=== PATIENT | male | born 1985 | race Hispanic/Latino ===

== ENCOUNTER 2019-12-27 12:26 | Emergency (ER) | payer BC ==
[2019-12-27] MEDS ORDERED: NA CHLORIDE 0.9% 1,000 ML ONE (13:24)
[2019-12-27 13:28] LABS: Absolute Lymphocytes (CBC) 2.6 K/uL (0.7-4.9); Basophils % 1.4 % (0-1.3); Hematocrit 49.1 % (39.6-49.0); Lymphocytes % 32.7 % (15.3-44.8); MPV 7.8 fL (7.6-11.3); RBC Red Blood Cell Count 6.13 M/uL (4.33-5.43)
[2019-12-27 13:46] LABS: ALT/SGPT 46 U/L (12-78); AST/SGOT 27 U/L (15-37); Albumin 4.2 g/dL (3.4-5.0); Alkaline Phosphatase 55 U/L (45-117); BUN Blood Urea Nitrogen 14 mg/dL (7-18); Bicarbonate 28 mmol/L (21-32); Bilirubin Direct < 0.1 mg/dL (0-0.2); Bilirubin Total 0.3 mg/dL (0.2-1.0); Glucose Level 102 mg/dL (74-106); Lipase 106 U/L (73-393); Potassium 4.1 mmol/L (3.5-5.1); Protein, Total 7.8 g/dL (6.4-8.2); Sodium Level 139 mmol/L (136-145)
--- NOTE | 2019-12-27 14:00 | RAD REPORT ---
EXAM DESCRIPTION: CTAbdomen Pelvis W Contrast - 12/27/2019 1:47 pm CLINICAL HISTORY: Abdominal pain. ABD PAIN COMPARISON: No comparisons TECHNIQUE: Biphasic CT imaging of the abdomen and pelvis was performed with 100 ml non-ionic IV cont rast. All CT scans are performed using dose optimization technique as appropriate and may include automated exposure control or mA/KV adjustment according to patient size. FINDINGS: The lung bases are clear. The liver, spleen, pancreas, adrenal glands and kidneys are within normal limits. No bowel obstruction, free air, free fluid or abscess. The appendix is normal. No evidence of signi ficant lymphadenopathy. No significant hernia is seen. No suspicious bony findings. IMPRESSION: No acute intra-abdominal or pelvic finding.
--- NOTE | 2019-12-27 14:17 | ER ---
Nurse's Notes [facility] Name: Everardo Law Age: 34 yrs Sex: Male : 1985 Arrival Date: 12/27/2019 Time: 12:31 Bed 13 Private MD: Diagnosis: Generalized abdominal pain Presentation: 12/26 12:44 Chief complaint: Patient states: abd hernia that has been ongoing for about 5 days on sv the left side but today he started having right sided pain and a "knot" on his umbilical area with a shooting pain in the right groin pain. Coronavirus screen: Client denies travel out of the [place] in the last 14 days. At this time, the client does not indicate any symptoms associated with coronavirus-19. Ebola Screen: No symptoms or risks identified at this time. Risk Assessment: Do you want to hurt yourself or someone else? Patient reports no desire to harm self or others. Onset of symptoms was December 2019. 12:44 Method Of Arrival: Ambulatory sv 12:44 Acuity: AGA 3 sv 12:46 Initial Sepsis Screen: Does the patient meet any 2 criteria? No. Patient's initial sv sepsis screen is negative. Does the patient have a suspected source of infection? No. Patient's initial sepsis screen is negative. Historical: - Allergies: 12:46 No Known Allergies; sv - PMHx: 12:46 None; sv - PSHx: 12:46 None; sv - Immunization history:: Adult Immunizations up to date. - Social history:: Smoking status: Patient denies any tobacco usage or history of. Screenin:00 Abuse screen: Denies threats or abuse. Nutritional screening: No deficits noted. aa5 Tuberculosis screening: No symptoms or risk factors identified. Fall Risk None identified. Assessment: 13:00 General: Appears comfortable, Behavior is calm, cooperative. Pain: Complains of pain in aa5 umbilical area Pain does not radiate. Pain currently is 4 out of 10 on a pain scale. Quality of pain is described as pressure, Is continuous. Neuro: Level of Consciousness is awake, alert, obeys commands, Oriented to person, place, time, situation. Cardiovascular: Heart tones S1 S2 present Rhythm is regular. Respiratory: Airway is patent Respiratory effort is even, unlabored, Respiratory pattern is regular, symmetrical. GI: Abdomen is round non-distended, Bowel sounds present X 4 quads. Abdomen is tender to palpation in umbilical area Reports nausea, Patient currently denies vomiting. : No signs and/or symptoms were reported regarding the genitourinary system. EENT: No signs and/or symptoms were reported regarding the EENT system. Derm: Skin is pink, warm \\T\\ dry. Musculoskeletal: Range of motion: intact in all extremities. 13:25 Reassessment: Patient is alert, oriented x 3, equal unlabored respirations, skin aa5 warm/dry/pink. Awaiting CT scan, pt notified of wait time. Pt states "I don't have any pain right now just pressure" . 14:45 Reassessment: Patient is alert, oriented x 3, equal unlabored respirations, skin aa5 warm/dry/pink. Vital Signs: 12:46 BP 138 / 88; Pulse 82; Resp 18; Temp 98.7(TE); Pulse Ox 100% on R/A; Weight 113.4 kg; sv Height 5 ft. 7 in. (170.18 cm); Pain 4/10; 14:41 BP 129 / 95; Pulse 67; Resp 18; Pulse Ox 98% on R/A; dh4 12:46 Body Mass Index 39.16 (113.40 kg, 170.18 cm) sv ED Course: 12:31 Patient arrived in ED. mr 12:44 Arm band placed on. sv 12:45 Triage completed. sv 12:52 Abigail Cardoza FNP-C is [facility]. kb 12:52 Charles Alcantar MD is Attending Physician. kb 13:00 Patient has correct armband on for positive identification. Bed in low position. Call aa5 light in reach. Side rails up X 1. 13:19 Inserted saline lock: 20 gauge in right antecubital area, using aseptic technique. dh4 Blood collected. 13:36 Brittany Casper, MAYITO is Primary Nurse. aa5 13:47 CT Abd/Pelvis - IV Contrast Only In Process Unspecified. EDMS 14:45 No provider procedures requiring assistance completed. IV discontinued, intact, aa5 bleeding controlled, No redness/swelling at site. Pressure dressing applied. Administered Medications: 13:25 Drug: NS 0.9% 1000 ml Route: IV; Rate: 1000 ml; Site: right antecubital; aa5 14:45 Follow up: IV Intake: 200ml ; IV fluids infusing slowly, offered to finished bolus aa5 before d/c, pt refused. 14:30 Drug: Pepcid 20 mg Route: IVP; Site: right antecubital; aa5 14:35 Follow up: Response: No adverse reaction aa5 Intake: 14:45 IV: 200ml; Total: 200ml. aa5 Outcome: 14:16 Discharge ordered by MD. guzman 14:45 Discharged to home ambulatory. aa5 14:45 Condition: stable 14:45 Discharge instructions given to patient, Instructed on discharge instructions, follow up and referral plans. medication usage, Demonstrated understanding of instructions, follow-up care, medications, Prescriptions given X 2. 14:47 Patient left the ED. aa5 Signatures: Dispatcher [employer] EDMS Abigail Cardoza, GAS SUBSTATION OPERATOR-C GAS SUBSTATION OPERATOR-Jami Dang RN RN Maria Isabel Hoffman CasperBrittany RN RN aa5 Sedrick Stephenson [facility] Corrections: (The following items were deleted from the chart) 12:47 12:44 Chief complaint: Patient states: abd hernia that has been ongoing for about 5 sv days on the left side but today he started having right sided pain and a "knot" on his umbilical area with a shooting pain in the right groin pain. sv 12:48 12:46 Pulse 82bpm; Resp 18bpm; Pulse Ox 100%; Temp 98.7F; 113.4 kg; Height 5 ft. 7 in.; sv BMI: 39.1; sv 14:36 13:00 GI: Abdomen is round non-distended, Bowel sounds present X 4 quads. Abdomen is aa5 tender to palpation in umbilical area aa5 14:53 14:52 Patient left the ED. aa5 aa5
--- NOTE | 2019-12-27 14:17 | EDPHYS ---
Physician Documentation [facility] Name: Everardo Law Age: 34 yrs Sex: Male : 1985 Arrival Date: 12/27/2019 Time: 12:31 Bed 13 Private MD: ED Physician Charles Alcantar HPI: 12/26 14:02 This 34 yrs old Male presents to ER via Ambulatory with complaints of Hernia. kb 14:02 The patient presents with abdominal pain that is diffuse. Onset: The symptoms/episode kb began/occurred last night. The symptoms do not radiate. Associated signs and symptoms: Pertinent positives: nausea. The symptoms are described as constant. Modifying factors: The symptoms are alleviated by nothing, the symptoms are aggravated by nothing. Severity of pain: At its worst the pain was moderate in the emergency department the pain is unchanged. The patient has not experienced similar symptoms in the past. The patient has not recently seen a physician. Pt reports he woke up with pain to abd. States it feels like a tightness that is getting tighter and tighter. Historical: - Allergies: 12:46 No Known Allergies; sv - PMHx: 12:46 None; sv - PSHx: 12:46 None; sv - Immunization history:: Adult Immunizations up to date. - Social history:: Smoking status: Patient denies any tobacco usage or history of. ROS: 14:00 Constitutional: Negative for fever, chills, and weight loss, Cardiovascular: Negative kb for chest pain, palpitations, and edema, Respiratory: Negative for shortness of breath, cough, wheezing, and pleuritic chest pain, Back: Negative for injury and pain, MS/Extremity: Negative for injury and deformity, Skin: Negative for injury, rash, and discoloration, Neuro: Negative for headache, weakness, numbness, tingling, and seizure. 14:00 Abdomen/GI: Positive for abdominal pain, nausea. Exam: 14:00 Constitutional: This is a well developed, well nourished patient who is awake, alert, kb and in no acute distress. Head/Face: Normocephalic, atraumatic. Chest/axilla: Normal chest wall appearance and motion. Nontender with no deformity. No lesions are appreciated. Cardiovascular: Regular rate and rhythm with a normal S1 and S2. No gallops, murmurs, or rubs. Normal PMI, no JVD. No pulse deficits. Respiratory: Lungs have equal breath sounds bilaterally, clear to auscultation and percussion. No rales, rhonchi or wheezes noted. No increased work of breathing, no retractions or nasal flaring. Skin: Warm, dry with normal turgor. Normal color with no rashes, no lesions, and no evidence of cellulitis. MS/ Extremity: Pulses equal, no cyanosis. Neurovascular intact. Full, normal range of motion. Neuro: Awake and alert, GCS 15, oriented to person, place, time, and situation. Cranial nerves II-XII grossly intact. Motor strength 5/5 in all extremities. Sensory grossly intact. Cerebellar exam normal. Normal gait. 14:00 Abdomen/GI: Inspection: abdomen appears normal, Bowel sounds: normal, in all quadrants, Palpation: soft, in all quadrants, mild abdominal tenderness, in the umbilical area and suprapubic area. Vital Signs: 12:46 BP 138 / 88; Pulse 82; Resp 18; Temp 98.7(TE); Pulse Ox 100% on R/A; Weight 113.4 kg; sv Height 5 ft. 7 in. (170.18 cm); Pain 4/10; 14:41 BP 129 / 95; Pulse 67; Resp 18; Pulse Ox 98% on R/A; dh4 12:46 Body Mass Index 39.16 (113.40 kg, 170.18 cm) sv MDM: 12:53 Patient medically screened. kb 13:58 Data reviewed: vital signs, nurses notes. Data interpreted: Pulse oximetry: on room air kb is 100 %. Interpretation: normal. 14:16 Counseling: I had a detailed discussion with the patient and/or guardian regarding: the kb historical points, exam findings, and any diagnostic results supporting the discharge/admit diagnosis, lab results, radiology results, the need for outpatient follow up, a family practitioner, to return to the emergency department if symptoms worsen or persist or if there are any questions or concerns that arise at home. 12/26 13:05 Order name: Basic Metabolic Panel; Complete Time: 13:53 kb 12/26 13:05 Order name: CBC with Diff; Complete Time: 13:33 kb 12/26 13:05 Order name: Hepatic Function; Complete Time: 13:53 kb 12/26 13:05 Order name: Lipase; Complete Time: 13:53 kb 12/26 13:05 Order name: CT Abd/Pelvis - IV Contrast Only; Complete Time: 14:04 kb 12/26 13:05 Order name: IV Saline Lock; Complete Time: 13:36 kb 12/26 13:05 Order name: Labs collected and sent; Complete Time: 13:36 kb Administered Medications: 13:25 Drug: NS 0.9% 1000 ml Route: IV; Rate: 1000 ml; Site: right antecubital; aa5 14:45 Follow up: IV Intake: 200ml ; IV fluids infusing slowly, offered to finished bolus aa5 before d/c, pt refused. 14:30 Drug: Pepcid 20 mg Route: IVP; Site: right antecubital; aa5 14:35 Follow up: Response: No adverse reaction aa5 Disposition: 16:43 Co-signature as Attending Physician, Charles Alcantar MD I agree with the assessment and kdr plan of care. Disposition: 12/27/19 14:16 Discharged to Home. Impression: Generalized abdominal pain. - Condition is Stable. - Discharge Instructions: Abdominal Pain, Adult, [id number]. - Prescriptions for Bentyl 20 mg Oral Tablet - take 1 tablet by ORAL route every 6 hours As needed; 20 tablet. Zofran 4 mg Oral Tablet - take 1 tablet by ORAL route every 6 hours As needed; 20 tablet. - Medication Reconciliation Form, Thank You Letter, Antibiotic Education, Prescription Opioid Use, Work release form form. - Follow up: Emergency Department; When: As needed; Reason: Worsening of condition. Follow up: Private Physician; When: 2 - 3 days; Reason: Recheck today's complaints, Continuance of care, Re-evaluation by your physician. Signatures: Dispatcher [employer] EDNV Abigail Cardoza, MERLIN CHRISTIANSEN-Jami Dang RN RN sv Rittger, Kevin, MD MD [facility] Brittany Casper RN RN aa5 Corrections: (The following items were deleted from the chart) 14:52 14:16 12/27/2019 14:16 Discharged to Home. Impression: Generalized abdominal pain. aa5 Condition is Stable. Forms are Medication Reconciliation Form, Thank You Letter, Antibiotic Education, Prescription Opioid Use. Follow up: Emergency Department; When: As needed; Reason: Worsening of condition. Follow up: Private Physician; When: 2 - 3 days; Reason: Recheck today's complaints, Continuance of care, Re-evaluation by your physician. kb
[2019-12-27] MEDS ORDERED: FAMOTIDINE 20 MG/2 ML VIAL IV ONE (14:52)
[2019-12-27 19:20] VITALS: TEMP 98.7
[2019-12-27 19:21] VITALS: BP 129/95; O2SAT 98
== END 2019-12-27 14:52 | disposition home or self-care (01) ==
LOC: ER 12:26
DX: R10.84 Generalized abdominal pain (principal)
CPT/HCPCS: 85025; 80048; 36415; 82565; 80076; 83690; 74177; 96374; 99284; Q9967; J7030

== ENCOUNTER 2024-04-07 17:18 | Emergency (ER) | payer BC ==
--- OUTSIDE RECORDS SUMMARY | 2024-04-07 17:23 | XMS REPORT | Continuity of Care Document ---
Author Name Unknown Address [address] [facility] [address] [place] [address] [facility] Address [address] [facility] [address] [facility] [address] [place] [address] Care Team Providers [facility] [employer] Professor Name Role Phone ZOFIA RIOS Primo Primary Care Physician LALY SARGENT Attending Clinician Tia Car MA Attending Clinician Francisco case Payers Payer Name Policy Type Policy Number Effective Date Expirati on Date Source [employer]BST[employer] PPO [id number] 2019 00:00:00 Problems Condition Name Condition Details Condition Category Status Onset Date Resolution Date Last Treatment Date Treating Clinician Comments Source Influenza- like illness Influenza- like Illness Problem Active 2023-04 00:00: 00 [facility] Fever Fever Problem Active 2023-04 00:00: 00 [facility] Nausea and vomiting Nausea and Vomiting Problem Active 2023-04 00:00: 00 [facility] No known active problems No known active problems Disease [facility] Social History Social Habit Start Date Stop Date Quantity Comments Source Exposure to SARS-CoV-2 (event) Not sure [facility] Alcohol intake 2021-04-06 00:00:00 2021-04-06 00:00:00 Ex-drinker (finding) [facility] Tobacco use and exposure 2020-12-15 00:00:00 2020-12-15 00:00:00 Smokeless tobacco non-user [facility] Sex Assigned At 1985 00:00:00 1985 00:00:00 [facility] Smoking Status Start Date Stop Date Source Never Smoker [facility] Ex-smoker 2020-12-15 00:00:00 2020-12-15 00:00:[address] [facility] Medications Ordered Medication Name Filled Medication Name Start Date Stop Date Current Medication? Ordering Clinician Indication Dosage Frequency Signature (SIG) Comments Components Source Loratadine- Pseudoephed rine (CLARITIN-D 12 HOUR PO) 2020-04 14:15: 01 Yes Take by mouth. [facility] TESTOSTERON E BU 2020-04 13:56: [address] mouth between cheek and gum. [facility] anastrozole (Arimidex) 1 MG chemo tablet 2020-04 13:56: 38 Yes 1mg QD Take 1 mg by mouth 1 (one) time each day. Swallow whole with a drink of water. [facility] diclofenac (Voltaren) 50 MG EC tablet 2020-04 00:00: 00 03-18 05:59 :00 No [id number] 50mg [id number] 3D Take 1 tablet (50 mg total) by mouth 3 (three) times a day if needed (pain). Do not crush, chew, or split. [facility] promethazin e (Phenergan) 12.5 MG tablet 2020-04 00:00: 00 03-25 05:59 :00 No [id number] 12.5mg Q6H Take 1 tablet (12.5 mg total) by mouth every 6 (six) hours if needed for nausea or vomiting for up to 7 days. [facility] amoxicillin -clavulanat e (Augmentin) 500-125 MG tablet 2020-04 00:00: 00 03-25 05:59 :00 No [id number] 500mg Q12H Take 1 tablet (500 mg total) by mouth every 12 (twelve) hours for 7 days. [facility] HYDROcodone -acetaminop hen ([place]) 7.5-325 MG tablet 2020-04 00:00: 00 03-23 05:59 :00 No [id number] 1{tbl} Q6H Take 1 tablet by mouth every 6 (six) hours if needed for severe pain for up to 5 days. [facility] cetirizine (ZyrTEC) 10 MG tablet 12-22 00:00: 00 Yes [id number] 10mg Take 1 tablet (10 mg total) by mouth 1 (one) time each day if needed for allergies. [facility] anastrozole (Arimidex) 1 MG chemo tablet 12-15 15:37: 17 Yes 1mg QD Take 1 mg by mouth 1 (one) time each day Swallow whole with a drink of water. [facility] TESTOSTERON E BU 12-15 15:37: [address] mouth between cheek and gum. [facility] anastrozole (Arimidex) 1 MG chemo tablet 12-15 10:37: 17 Yes 1mg QD Take 1 mg by mouth 1 (one) time each day Swallow whole with a drink of water. [facility] TESTOSTERON E 12-15 10:37: [address] mouth between cheek and gum. [facility] predniSONE (Deltasone) 10 MG tablet 12-15 00:00: 00 Yes 75 Take 3 tablets by mouth daily for 3 days then Take 2 tablets by mouth daily for 3 days then Take 1 tablets by mouth daily for 4 days [facility] cetirizine (ZyrTEC) 10 MG tablet 12-15 00:00: 00 12-22 00:00 :00 No [id number] 10mg Take 1 tablet (10 mg total) by mouth 1 (one) time each day if needed for allergies. [facility] bupropion HCl XL 300 mg 24 hr tablet, extended release TAKE 1 TABLET BY MOUTH EVERY DAY bupropion HCl XL 300 mg 24 hr tablet, extended release TAKE 1 TABLET BY MOUTH EVERY DAY No bupropion HCl XL 300 mg 24 hr tablet, extended release TAKE 1 TABLET BY MOUTH EVERY DAY [facility] cholecalcif beatriz (vitamin D3) 1,250 mcg (50,000 unit) capsule TAKE 1 CAPSULE BY MOUTH EVERY WEEK FOR 12 WEEKS cholecalcif beatriz (vitamin D3) 1,250 mcg (50,000 unit) capsule TAKE 1 CAPSULE BY MOUTH EVERY WEEK FOR 12 WEEKS No cholecalci ferol (vitamin D3) 1,250 mcg (50,000 unit) capsule TAKE 1 CAPSULE BY MOUTH EVERY WEEK FOR 12 WEEKS [facility] dextroamphe tamine-amph etamine ER 20 mg 24hr capsule,ext end release TAKE 1 CAPSULE BY MOUTH EVERY MORNING dextroamphe tamine-amph etamine ER 20 mg 24hr capsule,ext end release TAKE 1 CAPSULE BY MOUTH EVERY MORNING No dextroamph etamine-am phetamine ER 20 mg 24hr capsule,ex tend release TAKE 1 CAPSULE BY MOUTH EVERY MORNING [facility] ondansetron 4 mg disintegrat ing tablet Place 1 tablet every 4 hours by translingua l route as needed for 3 days. ondansetron 4 mg disintegrat ing tablet Place 1 tablet every 4 hours by translingua l route as needed for 3 days. No 1 Q4H ondansetro n 4 mg disintegra ting tablet Place 1 tablet every 4 hours by translingu al route as needed for 3 days. [facility] promethazin e-DM 6.25 mg-15 mg/5 mL oral syrup Take 5 mL every 4 hours by oral route for 5 days. promethazin e-DM 6.25 mg-15 mg/5 mL oral syrup Take 5 mL every 4 hours by oral route for 5 days. No 5mL Q4H promethazi ne-DM 6.25 mg-15 mg/5 mL oral syrup Take 5 mL every 4 hours by oral route for 5 days. [facility] propranolol 40 mg tablet TAKE 1 TABLET BY MOUTH EVERY MORNING propranolol 40 mg tablet TAKE 1 TABLET BY MOUTH EVERY MORNING No propranolo l 40 mg tablet TAKE 1 TABLET BY MOUTH EVERY MORNING [facility] sildenafil (pulmonary hypertensio n) 20 mg tablet TAKE 1 TABLET BY MOUTH 1 HOUR BEFORE SEXUALY ACTIVITY sildenafil (pulmonary hypertensio n) 20 mg tablet TAKE 1 TABLET BY MOUTH 1 HOUR BEFORE SEXUALY ACTIVITY No sildenafil (pulmonary hypertensi on) 20 mg tablet TAKE 1 TABLET BY MOUTH 1 HOUR BEFORE SEXUALY ACTIVITY [facility] testosteron e cypionate 200 mg/mL intramuscul ar oil INJEC 200 MG INTRAMUSCUL DIONICIO EVERY WEEK testosteron e cypionate 200 mg/mL intramuscul ar oil INJEC 200 MG INTRAMUSCUL DIONICIO EVERY WEEK No testostero ne cypionate 200 mg/mL intramuscu lar oil INJEC 200 MG INTRAMUSCU JESUS EVERY WEEK [facility] benzonatate 200 mg capsule Take 1 capsule 3 times a day by oral route for 10 days. benzonatate 200 mg capsule Take 1 capsule 3 times a day by oral route for 10 days. No 1capsul e(s) TID benzonatat e 200 mg capsule Take 1 capsule 3 times a day by oral route for 10 days. [facility] Vital Signs Vital Name Observation Time Observation Value Comments [facility] Body height 2021-01-26 13:27:00 170.2 cm [facility] Body weight 2021-01-26 13:27:00 122.471 kg [facility] BMI 2021-01-26 13:27:00 42.29 kg/m2 [facility] BP Systolic 2024-04-01 00:00:00 115 mm[Hg] [facility] Height 2024-04-01 00:00:00 67 [facility] BMI (Body Mass Index) 2024-04-01 00:00:00 50 kg/m2 [facility] Body Weight 2024-04-01 00:00:00 5104 [oz_av] [facility] BP Diastolic 2024-04-01 00:00:00 69 mm[Hg] [facility] Body height 2021-04-06 20:13:00 170.2 cm [facility] Body weight 2021-04-06 20:13:00 127.007 kg [facility] BMI 2021-04-06 20:13:00 43.85 kg/m2 [facility] Body height 2021-03-23 19:55:00 170.2 cm [facility] Body weight 2021-03-23 19:55:00 129.275 kg [facility] BMI 2021-03-23 19:55:00 44.64 kg/m2 [facility] Body height 2021-01-26 13:27:00 170.2 cm [facility] Body weight 2021-01-26 13:27:00 122.471 kg [facility] BMI 2021-01-26 13:27:00 42.29 kg/m2 [facility] Body height 2020-12-15 15:35:00 170.2 cm [facility] Body weight 2020-12-15 15:35:00 124.739 kg [facility] BMI 2020-12-15 15:35:00 43.07 kg/m2 [facility] Procedures Procedure Date / Time Performed Performing Clinicia n Source SURGICAL BIOPSY 2021-03-18 06:00:00 Laly Sargent [facility] Encounters Start Date/Time End Date/Time Encounter Type Admission Type Attending [facility] Care Department Encounter ID Source 2021-04-06 14:56:34 Outpatient LALY SARGENT [facility] [id number] [facility] 2021-02-12 07:42:11 Outpatient [facility] [id number] [facility] 2021-01-26 09:09:25 Outpatient [facility] [id number] [facility] 2021-01-26 09:08:29 Outpatient [facility] [id number] [facility] 2020-12-15 11:32:54 Outpatient [facility] [id number] [facility] 2024-04-01 00:00:00 2024-04-01 00:00:00 Susi Barfield, BAD CLOTH CHECKER: [address], [address], [place] [address] , Ph. [facility] [id number] 1223 [facility] 2021-04-06 13:45:00 2021-04-06 14:56:46 Office Visit Laly Sargent [facility] [address] [id number] 3 [id number] [facility] 2021-03-23 14:00:00 2021-03-23 14:33:55 Office Visit Laly Sargent [facility] [address] [id number] [facility] 2021-03-18 00:00:00 2021-03-18 00:00:00 Orders Only Laly Sargent [facility] [address] [id number] [facility] 2021-01-26 08:17:27 2021-01-26 09:05:32 Office Visit Laly Sargent [facility] [address] [id number] [facility] 2020-12-22 00:00:00 2020-12-22 00:00:00 Orders Only Ken, Tia Rogers, Tia [facility] [address] [id number] [id number] [facility] 2020-12-15 10:24:16 2020-12-15 11:32:53 Office Visit Laly Sargent [facility] [address] [id number] [id number] [facility] Results Test Description Test Time Test Comments Results Result Co mments Source [facility] and SARS-CoV+SARS-CoV-2 (COVID- 19) Ag panel - Upper respiratory specimen byRapid [id number] 16:17:15 * Test Item Value Reference Range Interpretation Comme [facility] RAPID SARS COV (test code = RAPID SARS COV) negative RAPID FLU A (test code = RAP ID FLU A) negative RAPID FLU B (test code = RAP ID FLU B) negative [facility] [id number] 18:06:00* Test Item Value Reference Range Interpretation Comme [facility] Pathology Report (test code = 4133416) PATIENT: ? Anna Gutierrez ? CASE NUMBER: ? [id number] OF : ? 1985 AGE: ?35 yrs SEX: M ? ? ? DATE COLLECTED: ?03/18/2021MRN: ? [id number] ?DATE RECEIVED: ? 03/19/2021ORDERING PHYSICIAN: Laly Sargent M.D. ? DATE REPORTED: ? 03/22/2021 COPY TO: ? [facility] ?SURGICAL PATHOLOGY REPORT DIAGNOSIS:Sinus Contents (Endoscopic sinus surgery): ? ? - Mild chronic sinusitis. ? ELECTRONICALLY SIGNED BY: ?Black Jorge M.D. ?03/22/2021 12:05 PMSPECIMEN SUBMITTED:Sinus Contents (Endoscopic sinus surgery)CLINICAL HISTORY:Inferior turbinate hypertrophy, chronic rhinosinusitis, nasal valve collapseGROSS DESCRIPTION:Received in formalin, labeled with the patient-s name, medical recordnumber, and -sinus contents -, is a 2.5 x 2.3 x 0.3 cm aggregate of pink todark red soft tissue, bone, and blood clot. Entirely submitted in 1A for decal.MICROSCOPIC DESCRIPTION:Histologic sections show sinonasal mucosa, submucosa, and fragments ofbone with mild chronic inflammation including lymphocytes and plasmacells. CPT CODES: ?09523, 10988CHS CODES: ?J34.3 I have personally reviewed the resident's preliminary interpretation and all ? ? ? specimen preparation and have personally issued this report. ? [facility] ? [address], [place] [address] ?Email: [email or web address] Pathologist (test code = 5919512) This case was electronically signed by Black Jorge M.D. Clinical History (test code = 0077851) Inferior turbinate hypertrophy, chronic rhinosinusitis, nasal valve collapse Comments (test code = 6548580) Frozen Interpretation (test code = 3170991) Specimen ID (test code = 1765843) BodySite (test code = 2442230) Sinus Contents SubSite (test code = 2424068) Special Procedure (test code = 8642197) Endoscopic sinus surgery Pieces (test code = 1693936) Descriptive (test code = 2525738) Size (test code = 4070713) Block (test code = 5525141) Slide (test code = 6335750) Saved (test code = 1751344) Gross Description (test code = 3065427) Received in formalin, labeled with the patient s name, medical record number, and sinus contents , is a 2.5 x 2.3 x 0.3 cm aggregate of pink to dark red soft tissue, bone, and blood clot. Entirely submitted in 1A for decal. Initials (test code = 6792410) RZ Microscopic Description (test code = 5105670) Histologic sections show sinonasal mucosa, submucosa, and fragments of bone with mild chronic inflammation including lymphocytes and plasma cells. Diagnosis Description (test code = 8327650) - Mild chronic sinusitis. Special Requests (test code = 4428942) Stain (test code = 4575074) H&E CPT Code (test code = 1892074) 90536, 74391 ICD Code (test code = 2005629) J34.3 Specimen Adequacy (test code = 5893077) Hormonal Evaluation (test code = 1740050) [employer] Diagnosis (test code = 5909208) Recommendation (test code = 7870962) PAP Comments (test code = 6471817) General Categorization (test code = 1940203) Preliminary Diagnosis (test code = 5119336) [facility]
[2024-04-07] MEDS ORDERED: NA CHLORIDE 0.9% 1,000 ML ONE (17:46)
[2024-04-07 18:41] LABS: Absolute Basophils 0.1 K/uL (0-0.5); Absolute Eosinophils 0.4 K/uL (0-0.5); Absolute Lymphocytes (CBC) 2.3 K/uL (0.7-4.9); Absolute Monocytes 1.3 K/uL (0.1-1.3); Absolute Neutrophil 7.9 K/uL (1.8-8.0); Basophils % 1.2 % (0-1.3); Eosinophils % 3.1 % (0-4.4); Hematocrit 53.9 % (39.6-49.0); Hemoglobin 17.6 g/dL (13.6-17.9); Lymphocytes % 19.2 % (15.3-44.8); MCH 26.7 pg (27.0-35.0); MCHC 32.7 g/dL (32.0-36.0); MCV 81.5 fL (80-100); MPV 7.5 fL (7.6-11.3); Monocytes % 10.6 % (3.3-12.3); Neutrophils % 65.9 % (41.7-73.7); Nucleated Red Blood Cells % 0.1 % (0-0); Platelets 364 thou/uL (152-406); RBC Red Blood Cell Count 6.62 M/uL (4.33-5.43); Red Cell Distribution Width 14.3 % (12.1-15.2)
[2024-04-07 18:50] LABS: PT Prothrombin Time 11.7 SECONDS (9.4-12.5); PTT, Activated Partial Thromb 32.3 SECONDS (24.3-36.9); Protime INR 1.05
--- NOTE | 2024-04-07 18:56 | RAD REPORT ---
EXAM: Chest Single View HISTORY: DYSPNEA COMPARISON: None. FINDINGS: LUNGS/PLEURA: The lungs are clear. No pleural effusions or pneumothorax. No pulmonary edema. MEDIASTINUM: The mediastinal silhouette is within normal limits. CARDIAC: The cardiac silhouette is within normal limits. UPPER ABDOMEN: No significant abnormality. BONES: No acute abnormality. LINES/TUBES/OTHER: N/A IMPRESSION: No evidence of acute cardiopulmonary disease.
[2024-04-07 19:03] LABS: SARS-CoV-2 Antigen CONTROL BLUE LINE VIS/BG OK; SARS-CoV-2 Antigen Rapid Res Negative (Negative)
[2024-04-07] MEDS ORDERED: ALBUTEROL 2.5 MG/3 ML NEB SOL ONE (19:45)
[2024-04-07] MEDS ORDERED: METHYLPREDNISOLONE 125 MG INJ ONE (19:45)
[2024-04-07] MEDS ORDERED: IPRATROPIUM BROM 0.5MG/2.5ML ONE (19:45)
[2024-04-07 22:02] LABS: Potassium 4.2 mEq/L (3.5-5.1)
[2024-04-07 22:03] LABS: Albumin 3.2 g/dL (3.4-5.0); Albumin/Globulin Ratio 0.8 (1.1-1.8); Anion Gap 11.2 mEq/L (5.0-15.0); Bilirubin Total 0.4 mg/dL (0.2-1.0); Globulin 4.1 g/dL (2.3-3.5); Protein, Total 7.3 g/dL (6.4-8.2)
--- NOTE | 2024-04-07 22:26 | RAD REPORT ---
EXAMINATION: CTA CHEST PE CLINICAL INDICATION: Male, 38 years old. DYSPNEA TECHNIQUE: This examination was performed according to an angiographic protocol with 3D post-processi ng. This involves 3D reconstructions, MIPs, volume rendered images and/or shaded surface rendering. One or more of the following dose reduction techniques were used: Automated exposure control, adjustm ent of the mA and/or kV according to patient size, and/or iterative reconstruction. Unless otherwise specified, incidental findings do not require dedicated imaging follow-up. [id number]. COMPARISON: Same-day chest x-ray FINDINGS: LOWER NECK: Visualized thyroid gland and soft tissues are normal. LUNGS AND AIRWAYS: Micronodularity present throughout the right and left lung but more notably within the lung bases. Mild bronchial wall thickening. Motion artifact limits evaluation for pulmonary nodule detection. PLEURA: No pleural effusion. No pneumothorax. Hemidiaphragms are normally positioned. MEDIASTINUM AND LYMPH NODES: No mediastinal mass or fluid collection. Normal size mediastinal, hilar, and axillary lymph nodes. THORACIC AORTA: No thoracic aortic aneurysm. PULMONARY ARTERIES: Caliber is within normal limits. Suboptimal evaluation of the pulmonary arteries. The segmental and subsegmental pulmonary arteries cannot be adequately assessed. HEART: Normal heart size. No coronary calcifications.No significant pericardial effusion. OSSEOUS STRUCTURES AND CHEST WALL: No fracture or suspicious osseous lesions. UPPER ABDOMEN: No significant abnormalities. Pronounced hepatic steatosis. IMPRESSION: 1. No central pulmonary embolus. Evaluation of the segmental and subsegmental pulmonary arteries is n ot possible due to motion artifact and suboptimal contrast calcification. 2. Mild micronodularity within the lungs bilaterally consistent with an infectious or inflammatory pr ocess including atypical and viral etiologies. 3. Pronounced hepatic steatosis. Correlate for scattered hepatitis.
--- NOTE | 2024-04-07 22:36 | EDPHYS ---
Physician Documentation [facility] Name: Everardo Lwa Age: 38 yrs Sex: Male : 1985 Arrival Date: 04/07/2024 Time: 17:18 Bed 5 Private MD: ED Physician Torsten Polo HPI: 04/07 17:40 This 38 yrs old Male presents to ER via Ambulatory with complaints of Cough, kb Shortness Of Breath, Chest Congestion. 17:40 Pt is a 38 year old male who presents for cough, congestion, shortness of breath, kb fever, nausea, vomiting, decreased appetite, excessive sweating and malaise that started about a week ago, but got worse 3 days ago. States he was seen at 4 days ago and given a steroid shot which helped some, but he is still having cough and shortness of breath. 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 . Historical: - Allergies: 17:29 No Known Allergies; tm6 - PMHx: 17:29 low testosterone; Hypertensive disorder; tm6 - PSHx: 17:29 Unable to Obtain; tm6 - Immunization history:: Flu vaccine is not up to date. - Infectious Disease History:: Denies. - Social history:: Smoking status: Patient denies any tobacco usage or history of. ROS: 17:39 Constitutional: As per HPI kb Exam: 17:39 Constitutional: This is a well developed, well nourished patient who is awake, alert, kb and in no acute distress. Head/Face: Normocephalic, atraumatic. ENT: Moist Mucous membranes Cardiovascular: Regular rate Abdomen/GI: Soft, non-tender. No distention Skin: Warm, dry with normal turgor. Normal color. MS/ Extremity: Pulses equal, no cyanosis. Neurovascular intact. Full, normal range of motion. Neuro: Awake and alert, GCS 15, oriented to person, place, time, and situation. 17:39 Respiratory: the patient does not display signs of respiratory distress, Respirations: normal, Breath sounds: wheezing: inspiratory expiratory that is mild, that is moderate, is heard in the right posterior upper lobe, right posterior middle lobe and right posterior lower lobe, 18:01 ECG was reviewed by the Attending Physician. kb Vital Signs: 17:28 BP 144 / 91; Pulse 92; Resp 19; Temp 98.4(O); Pulse Ox 97% on R/A; MAP 117 mmHg; Weight tm6 145.15 kg; Height 5 ft. 7 in. ; Pain 0/10; 18:30 BP 130 / 83; Pulse 92; Resp 16; Pulse Ox 98% ; bp 20:59 BP 135 / 98; Pulse 96; Resp 20; Temp 98.6; Pulse Ox 95% ; Pain 0/10; bm8 23:19 BP 136 / 97; Pulse 94; Resp 18; Temp 98.6; Pulse Ox 96% ; Pain 0/10; bm8 17:28 Body Mass Index 50.12 (145.15 kg, 170.18 cm) tm6 17:28 Pain Scale: Adult tm6 20:59 Pain Scale: Adult bm8 23:19 Pain Scale: Adult bm8 Alejandrina Coma Score: 20:59 Eye Response: spontaneous(4). Motor Response: obeys commands(6). Verbal Response: bm8 oriented(5). Total: 15. 23:19 Eye Response: spontaneous(4). Motor Response: obeys commands(6). Verbal Response: bm8 oriented(5). Total: 15. MDM: 17:27 Medical Screening Exam initiated kb 17:39 Data reviewed: vital signs, nurses notes. kb 22:35 Differential Diagnosis: Bronchitis Influenza Upper Respiratory Infection Pneumonia. kb Consideration of Admission/Observation Escalation of care including admission/observation considered. admission considered, but resp even and unlabored, lungs clear after treatment. . Counseling: I had a detailed discussion with the patient and/or guardian regarding the historical points, exam findings, and any diagnostic results supporting the discharge/admit diagnosis, lab results, radiology results, the need for outpatient follow up, a family practitioner, to return to the emergency department if symptoms worsen or persist or if there are any questions or concerns that arise at home. 04/07 17:35 Order name: Blood Culture Adult (2) 04/07 17:35 Order name: CBC with Diff; Complete Time: 18:46 kb 04/07 17:35 Order name: CMP; Complete Time: 22:09 kb 04/07 17:35 Order name: Lactate w/ 2H reflex if indic.; Complete Time: 19:13 kb 04/07 17:35 Order name: Protime (+inr); Complete Time: 18:51 kb 04/07 17:35 Order name: Ptt, Activated; Complete Time: 18:51 kb 04/07 17:35 Order name: SARS-COV-2 Antigen Rapid; Complete Time: 19:13 kb 04/07 17:35 Order name: Flu; Complete Time: 19:13 kb 04/07 17:41 Order name: D-Dimer; Complete Time: 19:13 kb 04/07 17:35 Order name: Chest Single View XRAY; Complete Time: 18:59 kb 04/07 19:14 Order name: CT Chest For PE Angio; Complete Time: 22:27 kb 04/07 17:35 Order name: EKG; Complete Time: 17:36 kb 04/07 17:35 Order name: Accucheck; Complete Time: 18:27 kb 04/07 17:35 Order name: Cardiac monitoring; Complete Time: 18:27 kb 04/07 17:35 Order name: EKG - Nurse/Tech; Complete Time: 18:27 kb 04/07 17:35 Order name: IV Saline Lock - Large Bore; Complete Time: 18:27 kb 04/07 17:35 Order name: Labs collected and sent; Complete Time: 18:27 kb 04/07 17:35 Order name: O2 Per Protocol; Complete Time: 18:27 kb 04/07 17:35 Order name: O2 Sat Monitoring; Complete Time: 18:27 kb 04/07 17:35 Order name: Vital Signs; Complete Time: 18:27 kb 04/07 19:14 Order name: Labs - recollect needed; Complete Time: 21:15 kmf EC:01 Rate is 93 beats/min. Rhythm is regular. QRS Currie is Normal. LA interval is normal at kb 138 msec. QRS interval is normal at 92 msec. QT interval is normal at 437 msec. Administered Medications: 18:27 Drug: NS 0.9% IV 1000 ml IV at 1000 ml once; to be given as a bolus over 60 minutes bp Route: IV; Rate: 1000 ml; Site: right forearm; 20:58 Follow up: Response: No adverse reaction; IV Status: Completed infusion; IV Intake: bm8 1000ml 19:49 Drug: Albuterol Inhalation 2.5 mg Inhalation once Route: Inhalation; bm8 20:58 Follow up: Response: No adverse reaction bm8 19:49 Drug: Ipratropium Inhalation Aerosol 0.5 mg Inhalation once Route: Inhalation; bm8 20:58 Follow up: Response: No adverse reaction bm8 19:49 Drug: MethylPrednisoLONE IVP 125 mg IVP once Route: IVP; Site: right antecubital; bm8 20:58 Follow up: Response: No adverse reaction bm8 22:58 Drug: AZITHromycin PO 500 mg PO once Route: PO; dd2 23:19 Follow up: Response: No adverse reaction bm8 22:59 Drug: Rocephin - Rocephin (cefTRIAXone) IVPB 1 grams IVPB once over 30 mins; (mix in 50 dd2 mL NS) Route: IVPB; Infused Over: 30 mins; Site: right forearm; 23:19 Follow up: Response: No adverse reaction; IV Status: Completed infusion; IV Intake: [id number] Disposition: 04/08 07:07 Co-signature as Attending Physician, Torsten Polo MD I reviewed the patient's care rn provided by the Advanced Practice Provider and agree with the diagnosis and treatment plan. Disposition Summary: 04/07/24 22:36 Discharge Ordered Notes: Location: Home kb Condition: Stable kb Diagnosis - Pneumonia, unspecified organism kb Followup: kb - With: Emergency Department - When: As needed - Reason: Worsening of condition Followup: kb - With: Private Physician - When: 2 - 3 days - Reason: Recheck today's complaints, Continuance of care, Re-evaluation by your physician Discharge Instructions: - Discharge Summary Sheet kb - Community-Acquired Pneumonia, Adult, [id number] kb Forms: - Medication Reconciliation Form kb - Antibiotic Education kb - Prescription Opioid Use kb - Patient Portal Instructions kb - Leadership Thank You Letter kb - Work release form dd2 Prescriptions: - albuterol sulfate 90 mcg/actuation Inhalation HFA Aerosol Inhaler - inhale 2 puff INHALATION route every 4-6 hours As needed; 1 unit; Refills: 0, kb Product Selection Permitted - Prednisone 20 mg Oral Tablet - take 1 tablet ORAL route once daily for 5 days; 5 tablet; Refills: 0, Product kb Selection Permitted - Zithromax 500 mg Oral Tablet - take 1 tablet ORAL route once daily for 5 days; 5 tablet; Refills: 0, Product kb Selection Permitted Signatures: Dispatcher [employer] Abigail Carney, ЕЛЕНА-C UI ARCHITECT-CkTorsten Ramírez MD MD rn Peltier, Brian, RN RN Hortensia Tamez [facility] Ebony Casiano, RN RN tm6 Jaylen Schulz, RN RN bm8 NONA KATZ, RN RN dd2 Corrections: (The following items were deleted from the chart) 04/07 17:36 17:36 BLOOD CULTURE*+BA.LAB.BRZ ordered. EDMS EDMS 17:36 17:36 CBC+H.LAB.BRZ ordered. EDMS EDMS 17:36 17:36 COMPREHENSIVE METABOLIC PANEL+C.LAB.BRZ ordered. EDMS EDMS 17:36 17:36 LACTATE+C.LAB.BRZ ordered. EDMS EDMS 17:36 17:36 PROTIME (+INR)+COAG.LAB.BRZ ordered. EDMS EDMS 17:36 17:36 PTT, ACTIVATED+COAG.LAB.BRZ ordered. EDMS EDMS 17:36 17:36 SARS-COV-2 Antigen Rapid+I.LAB.BRZ ordered. EDMS EDMS 17:36 17:36 Influenza Screen (A \T\ B)+BA.LAB.BRZ ordered. EDMS EDMS
--- NOTE | 2024-04-07 22:36 | ER ---
Nurse's Notes [facility] Name: Everardo Law Age: 38 yrs Sex: Male : 1985 Arrival Date: 04/07/2024 Time: 17:18 Bed 5 Private MD: Diagnosis: Pneumonia, unspecified organism Presentation: 04/07 17:28 Chief complaint: Patient states: sob x3 days, cough, fever, n/v, loss of appetite, tm6 sweating. Coronavirus screen: Client denies travel out of the [place] in the last 14 days. Ebola Screen: Patient negative for fever greater than or equal to 101.5 degrees Fahrenheit, and additional compatible Ebola Virus Disease symptoms Patient denies exposure to infectious person. Patient denies travel to an Ebola-affected area in the 21 days before illness onset. No symptoms or risks identified at this time. Initial Sepsis Screen: Does the patient meet any 2 criteria? No. Patient's initial sepsis screen is negative. Does the patient have a suspected source of infection? No. Patient's initial sepsis screen is negative. Risk Assessment: Do you want to hurt yourself or someone else? Patient reports no desire to harm self or others. Onset of symptoms was April 04, 2024. 17:28 Method Of Arrival: Ambulatory tm6 17:28 Acuity: AGA 3 tm6 Triage Assessment: 17:29 General: Appears in no apparent distress. Behavior is calm, cooperative. Pain: Denies tm6 pain. EENT: Reports nasal congestion nasal discharge. Neuro: Level of Consciousness is awake, alert, obeys commands, Oriented to person, place, time, situation. Cardiovascular: Patient's skin is warm and dry. Respiratory: Reports shortness of breath at rest on exertion since x3 days Breath sounds with wheezes in right upper lobe, right middle lobe and right lower lobe Onset: The symptoms/episode began/occurred x3 days, the patient has mild shortness of breath. GI: Abdomen is round non-distended, Reports nausea, vomiting. : No signs and/or symptoms were reported regarding the genitourinary system. Derm: No deficits noted. No signs and/or symptoms reported regarding the dermatologic system. Musculoskeletal: No signs and/or symptoms reported regarding the musculoskeletal system. Historical: - Allergies: 17:29 No Known Allergies; tm6 - PMHx: 17:29 low testosterone; Hypertensive disorder; tm6 - PSHx: 17:29 Unable to Obtain; tm6 - Immunization history:: Flu vaccine is not up to date. - Infectious Disease History:: Denies. - Social history:: Smoking status: Patient denies any tobacco usage or history of. Screenin:30 [facility] ED Fall Risk Assessment (Adult) History of falling in the last 3 months, bp including since admission No falls in past 3 months (0 pts) Confusion or Disorientation No (0 pts) Intoxicated or Sedated No (0 pts) Impaired Gait No (0 pts) Mobility Assist Device Used No (0 pt) Altered Elimination No (0 pt) Score/Fall Risk Level 0 - 2 = Low Risk Oriented to surroundings. Abuse screen: Denies threats or abuse. Denies injuries from another. Nutritional screening: No deficits noted. Tuberculosis screening: No symptoms or risk factors identified. Assessment: 17:30 General: Appears in no apparent distress. obese, Behavior is cooperative, appropriate bp for age, anxious. Pain: Complains of pain in chest. Neuro: No deficits noted. Cardiovascular: Rhythm is sinus rhythm. Respiratory: Airway is patent Respiratory effort is even, unlabored. GI: No signs and/or symptoms were reported involving the gastrointestinal system. : No signs and/or symptoms were reported regarding the genitourinary system. EENT: No deficits noted. Derm: No deficits noted. Musculoskeletal: No deficits noted. 20:59 Reassessment: Patient appears in no apparent distress at this time. Patient and/or bm8 family updated on plan of care and expected duration. Pain level reassessed. Patient is alert, oriented x 3, equal unlabored respirations, skin warm/dry/pink. Patient denies pain at this time. Patient states feeling better. Patient states symptoms have improved. Respiratory: Airway is patent Trachea midline Respiratory effort is even, unlabored, Respiratory pattern is regular, symmetrical, Breath sounds are clear bilaterally. 22:59 Reassessment: D/C PENDING COMPLETION OF IV ANTIBIOTICS. dd2 Vital Signs: 17:28 BP 144 / 91; Pulse 92; Resp 19; Temp 98.4(O); Pulse Ox 97% on R/A; MAP 117 mmHg; Weight tm6 145.15 kg; Height 5 ft. 7 in. ; Pain 0/10; 18:30 BP 130 / 83; Pulse 92; Resp 16; Pulse Ox 98% ; bp 20:59 BP 135 / 98; Pulse 96; Resp 20; Temp 98.6; Pulse Ox 95% ; Pain 0/10; bm8 23:19 BP 136 / 97; Pulse 94; Resp 18; Temp 98.6; Pulse Ox 96% ; Pain 0/10; bm8 17:28 Body Mass Index 50.12 (145.15 kg, 170.18 cm) tm6 17:28 Pain Scale: Adult tm6 20:59 Pain Scale: Adult bm8 23:19 Pain Scale: Adult bm8 Alejandrina Coma Score: 20:59 Eye Response: spontaneous(4). Motor Response: obeys commands(6). Verbal Response: bm8 oriented(5). Total: 15. 23:19 Eye Response: spontaneous(4). Motor Response: obeys commands(6). Verbal Response: bm8 oriented(5). Total: 15. ED Course: 17:22 Patient arrived in ED. im 17:27 Abigail Cardoza FNP-C is PHCP. kb 17:27 Torsten Polo MD is Attending Physician. kb 17:29 Triage completed. tm6 17:29 Arm band placed on right wrist. tm6 17:30 Patient has correct armband on for positive identification. bp 17:39 Leo Doty, RN is Primary Nurse. bp 18:04 Flu Sent. jj7 18:04 SARS-COV-2 Antigen Rapid Sent. jj7 18:25 Initial lab(s) drawn, by co, sent to lab. First set of blood cultures drawn by co, bp Second set of blood cultures drawn by co. 18:28 Inserted saline lock: 22 gauge in right forearm, using aseptic technique. Blood bp collected. Flushed with 10 mL NS. 18:48 Chest Single View XRAY In Process Unspecified. EDMS 19:08 Report given to CHAPIN EDMOND. jj7 20:59 Provided Education on:. bm8 20:59 No provider procedures requiring assistance completed. Patient maintains SpO2 bm8 saturation greater than 95% on room air. 22:15 CT Chest For PE Angio In Process Unspecified. EDMS 23:19 IV discontinued, intact, bleeding controlled, No redness/swelling at site. Pressure bm8 dressing applied. Administered Medications: 18:27 Drug: NS 0.9% IV 1000 ml IV at 1000 ml once; to be given as a bolus over 60 minutes bp Route: IV; Rate: 1000 ml; Site: right forearm; 20:58 Follow up: Response: No adverse reaction; IV Status: Completed infusion; IV Intake: bm8 1000ml 19:49 Drug: Albuterol Inhalation 2.5 mg Inhalation once Route: Inhalation; bm8 20:58 Follow up: Response: No adverse reaction bm8 19:49 Drug: Ipratropium Inhalation Aerosol 0.5 mg Inhalation once Route: Inhalation; bm8 20:58 Follow up: Response: No adverse reaction bm8 19:49 Drug: MethylPrednisoLONE IVP 125 mg IVP once Route: IVP; Site: right antecubital; bm8 20:58 Follow up: Response: No adverse reaction bm8 22:58 Drug: AZITHromycin PO 500 mg PO once Route: PO; dd2 23:19 Follow up: Response: No adverse reaction bm8 22:59 Drug: Rocephin - Rocephin (cefTRIAXone) IVPB 1 grams IVPB once over 30 mins; (mix in 50 dd2 mL NS) Route: IVPB; Infused Over: 30 mins; Site: right forearm; 23:19 Follow up: Response: No adverse reaction; IV Status: Completed infusion; IV Intake: [id number] Medication: 20:59 VIS not applicable for this client. bm8 Intake: 20:58 IV: 1000ml; Total: 1000ml. bm8 23:19 IV: 50ml; Total: 1050ml. bm8 Outcome: 22:36 Discharge ordered by MD. guzman 23:19 Discharged to home ambulatory, bm8 23:19 Condition: stable 23:19 Discharge instructions given to patient, family, Instructed on discharge instructions, follow up and referral plans. no drinking with medication, no driving heavy equipment, medication usage, safety practices, Demonstrated understanding of instructions, follow-up care, medications, Prescriptions given X 3, 23:20 Patient left the ED. bm8 Signatures: Dispatcher [employer] EDMS Abigail Cardoza, MERLIN CHRISTIANSEN-Leo Hays, RN RN Franchesca Juárez RN RN jjCandace Juan Tawney RN MAYITO tm6 Jaylen Schulz RN RN bm8 GIANNA, NONA, RN RN dd2
[2024-04-07] MEDS ORDERED: CEFTRIAXONE 1000 MG/VIAL ONE (22:48)
[2024-04-07] MEDS ORDERED: NA CHLORIDE 0.9% 50 ML ONE (22:49)
[2024-04-07] MEDS ORDERED: AZITHROMYCIN 250 MG TAB ONE (22:49)
[2024-04-08 03:19] VITALS: TEMP 98.6
[2024-04-08 03:21] VITALS: BP 136/97; O2SAT 96
--- NOTE | 2024-04-08 11:10 | EKG ---
Test Date: 2024-04-07 Test Time: 18:00:33 Aquatics Instructor: BP MEASUREMENT RESULTS: Intervals: Rate: 93 AZ: 138 QRSD: 92 QT: 352 QTc: 437 Sarles: P: 43 AZ: 138 QRS: 72 T: -21 INTERPRETIVE STATEMENTS: Normal sinus rhythm T wave abnormality, consider inferior ischemia Abnormal ECG No previous ECG available for comparison Electronically Signed On 04-08-24 11:08:41 [employer] SAL[employer] by Neftaly Perez
== END 2024-04-07 23:20 | disposition home or self-care (01) ==
LOC: ER 17:18
DX: J18.9 Pneumonia, unspecified organism (principal); Z11.52 Encounter for screening for COVID-19; I10 Essential (primary) hypertension
CPT/HCPCS: 96365; 96361; 93005; 87040 ×2; 85025; 36415; 85610; 85379; 83605; 85730; 80053; 87804 ×2; 71275; 71045; 96375; 99285; 87811; Q9967; J7613; J7644; J2919; J7030; J0696